=== PATIENT | male | born 1995 | race Native Hawaiian/Other Pacific Islander ===

== ENCOUNTER 2019-02-14 14:40 | Emergency (ER) | payer OTHER ==
[~2019-02-14] VITALS: Ht 180.3 cm; Wt 74.8 kg
[2019-02-14 14:40] VITALS: TEMP 98.6
[2019-02-14] MEDS ORDERED: NEURONTIN 100M100 MG PO (15:07)
[2019-02-14 17:40] VITALS: BP 120/72
== END 2019-02-14 17:48 | disposition home or self-care (01) ==
LOC: ED 14:51
DX: M79.602 Pain in left arm (principal); G89.29 Other chronic pain; Z87.828 Personal history of other (healed) physical injury and trauma
CPT/HCPCS: 96372; 99283; J1885